=== PATIENT | male | born 1975 | race Caucasian/White ===

== ENCOUNTER 2020-08-06 03:48 | Inpatient (IN) | payer OTHER ==
[~2020-08-06] VITALS: Ht 177.8 cm; Wt 139.1 kg
[2020-08-06] MEDS ORDERED: ALBUTEROL/IPRATROPIUM 2.5MG/0.5MG, 3 ML ONE (04:01)
[2020-08-06] MEDS ORDERED: methylPREDNISolone SOD SUCC 125 MG/2 ML ONE (04:01)
[2020-08-06] MEDS ORDERED: ALBUTEROL 0.5%, 20ML ONE (04:10)
[2020-08-06] MEDS ORDERED: PLEASE ENTER ALLERGIES MC SCH (04:30)
[2020-08-06] MEDS ORDERED: SODIUM CHLORIDE 0.9% 1,000ML IVBOLUS ONE (04:30)
[2020-08-06] MEDS ORDERED: methylPREDNISolone SOD SUCC 125 MG/2 ML IVPB ONE (04:30)
[2020-08-06] MEDS ORDERED: ALBUTEROL 0.5%, 20ML NPPB SCH (04:30)
--- NOTE | 2020-08-06 04:32 | NUR ---
Patient presents to ER c/o SOB x2 days. Patient states he had COVID approx 1 month ago but recovered. Patient has a hx of asthma. He does not use neb tx at home but does use an inhaler. His meds were not helping. Patient speaking in one word sentences. 77% RA on arrival. No O2 at home. Patient is having obvious diff breathing. Respirations even and labored.
--- NOTE | 2020-08-06 04:35 | NUR ---
Patient receiving continuous neb tx. Patient now able to speak in full word sentences. Patient appears fatigued. Denies ever having to be intubated. Lab at bedside.
--- NOTE | 2020-08-06 04:40 | NUR ---
Patient states he uses an inhaler and takes an unknown anti-anxiety med.
[2020-08-06 04:58] LABS: BASOPHILS % (AUTO) 1 % (0-1); EOSINOPHILS % (AUTO) 7 % (1-7); LYMPHOCYTES % (AUTO) 20 % (22-44); MEAN CORPUSCULAR HEMOGLOBIN 30.7 pg (27.5-34.5); MEAN CORPUSCULAR HGB CONC 34.4 g/dL (33.2-36.2); MEAN PLATELET VOLUME 7.4 fL (7.4-10.4); MONOCYTES % (AUTO) 12 % (2-9); NEUTROPHILS % (AUTO) 60 % (42-75); PLATELET COUNT 175 x10^3/uL (130-400); RED BLOOD COUNT 5.02 x10^6/uL (4.38-5.82); RED CELL DISTRIBUTION WIDTH 15.4 % (9.4-14.8)
[2020-08-06 05:00] LABS: MD NO
[2020-08-06 05:06] LABS: ALANINE AMINOTRANSFERASE 53 U/L (12-78); ALBUMIN 3.6 g/dL (3.4-5.0); ANION GAP 6 mmol/L (5-15); CALCIUM 8.8 mg/dL (8.5-10.1); CHLORIDE 109 mmol/L (98-107)
[2020-08-06 05:11] LABS: ALKALINE PHOSPHATASE 58 U/L (45-117); BILIRUBIN,TOTAL 0.6 mg/dL (0.2-1.0); CREATININE 1.03 mg/dL (0.7-1.3); TOTAL PROTEIN 6.8 g/dL (6.4-8.2); TROPONIN I < 0.015 ng/mL (0.000-0.045)
--- NOTE | 2020-08-06 06:11 | NUR ---
Patient resting comfortably in [facility] on a [place]. Respirations even and unlabored. TBADM
[2020-08-06] MEDS ORDERED: SODIUM CHLORIDE FLUSH 10ML SYR IVF PRN (06:30)
--- NOTE | 2020-08-06 06:58 | NUR ---
Report given to SALBADOR Cardenas. Patient care transferred.
--- NOTE | 2020-08-06 06:58 | NUR ---
Recieved report from [facility]
[2020-08-06] MEDS ORDERED: ACETAMINOPHEN 325 MG TABLET PO PRN (07:00)
--- NOTE | 2020-08-06 07:29 | NUR ---
Report given to [facility]
[2020-08-06 07:50] VITALS: BP 134/85
[2020-08-06] MEDS: DOXYCYCLINE 100 MG in DEXTROSE 5% 250 ML IV SCH ×2 (09:36→21:30)
[2020-08-06] MEDS: methylPREDNISolone SOD SUCC 125 MG/2 ML IVPush SCH ×3 (09:36→23:20)
[2020-08-06] MEDS: SODIUM CHLORIDE 0.9% 1,000 ML IV SCH ×2 (09:37→16:52)
[2020-08-06] MEDS: ENOXAPARIN 40 MG/0.4 ML SQ SCH (09:37)
[2020-08-06 10:09] LABS: D-DIMER 0.7 ug/mlFEU (0.00-0.52)
[2020-08-06 10:32] VITALS: BP 134/85
[2020-08-06] MEDS ORDERED: ESCI10TA10 PO (10:40)
[2020-08-06] MEDS: ALBUTEROL HFA 90 MCG/SPRAY INH SCH ×3 (11:00→19:54)
[2020-08-06] MEDS ORDERED: TAMS-11 PO (11:06)
[2020-08-06 14:22] VITALS: BP 149/89
[2020-08-06 20:33] VITALS: BP 135/84
[2020-08-06] MEDS ORDERED: OMNIPAQUE 350 MG/ML, 100ML BOTTLE ONE (21:42)
[2020-08-06 23:50] VITALS: BP 137/78
[2020-08-07 00:21] VITALS: BP 137/78
[2020-08-07 05:47] LABS: BASOPHILS % (AUTO) 0 % (0-1); EOSINOPHILS % (AUTO) 0 % (1-7); LYMPHOCYTES % (AUTO) 6 % (22-44); MEAN CORPUSCULAR HEMOGLOBIN 30.6 pg (27.5-34.5); MEAN PLATELET VOLUME 7.5 fL (7.4-10.4); MONOCYTES % (AUTO) 3 % (2-9); NEUTROPHILS % (AUTO) 91 % (42-75); PLATELET COUNT 202 x10^3/uL (130-400); RED BLOOD COUNT 5.23 x10^6/uL (4.38-5.82); RED CELL DISTRIBUTION WIDTH 15.3 % (9.4-14.8)
[2020-08-07 05:53] LABS: ALANINE AMINOTRANSFERASE 39 U/L (12-78); ALBUMIN 3.5 g/dL (3.4-5.0); ANION GAP 5 mmol/L (5-15); CALCIUM 8.4 mg/dL (8.5-10.1); CHLORIDE 107 mmol/L (98-107); CREATININE 0.88 mg/dL (0.7-1.3)
[2020-08-07 06:03] LABS: ALKALINE PHOSPHATASE 57 U/L (45-117); BILIRUBIN,TOTAL 0.6 mg/dL (0.2-1.0)
[2020-08-07 06:06] LABS: MD NO
[2020-08-07] MEDS: methylPREDNISolone SOD SUCC 125 MG/2 ML IVPush SCH ×3 (06:11→23:39)
[2020-08-07] MEDS: ENOXAPARIN 40 MG/0.4 ML SQ SCH (06:25)
[2020-08-07] MEDS: ALBUTEROL HFA 90 MCG/SPRAY INH SCH ×4 (07:19→19:55)
[2020-08-07 08:45] VITALS: BP 121/69
[2020-08-07] MEDS: DOXYCYCLINE 100 MG in DEXTROSE 5% 250 ML IV SCH ×2 (09:19→21:41)
[2020-08-07 13:35] VITALS: BP 118/75
[2020-08-07] MEDS ORDERED: ESCITALOPRAM 10MG TABLET PO PRN (16:00)
[2020-08-07 19:58] VITALS: BP 143/80
[2020-08-08 00:50] VITALS: BP 126/78
[2020-08-08] MEDS: ALBUTEROL HFA 90 MCG/SPRAY INH SCH (07:00)
[2020-08-08] MEDS: ENOXAPARIN 40 MG/0.4 ML SQ SCH (07:00)
[2020-08-08 07:41] VITALS: BP 114/74
[2020-08-08] MEDS: methylPREDNISolone SOD SUCC 125 MG/2 ML IVPush SCH (07:57)
[2020-08-08] MEDS ORDERED: METH4TAB2 PO (08:52)
[2020-08-08] MEDS ORDERED: ALBU18HF INH (08:52)
[2020-08-08] MEDS ORDERED: DOXY100T23 PO (08:52)
[2020-08-08] MEDS ORDERED: TAMSULOSIN 0.4 MG CAP.ER.24H PO SCH (09:00)
[2020-08-08] MEDS: DOXYCYCLINE 100 MG in DEXTROSE 5% 250 ML IV SCH (09:33)
[2020-08-08] MEDS ORDERED: ALBUTEROL HFA 90 MCG/SPRAY INH PRN (11:00)
== END 2020-08-08 11:50 | disposition home or self-care (01) | DRG 189 ==
LOC: ED 04:18 → EDIP 06:21 → INTOOBSV 06:21 → OBSVTOIN 06:21 → EDIP 07:50 → 4NW 08:24 → DCLOUNGE 08-08 11:45
PROVIDERS: ADMIT Family Medicine; ATTEND Family Medicine
DX: J96.01 Acute respiratory failure with hypoxia (principal); E87.2 Acidosis; J45.52 Severe persistent asthma with status asthmaticus; E16.2 Hypoglycemia, unspecified; F41.1 Generalized anxiety disorder; G47.30 Sleep apnea, unspecified; I10 Essential (primary) hypertension; Z20.822 Contact with and (suspected) exposure to COVID-19; R73.9 Hyperglycemia, unspecified; Z80.8 Family history of malignant neoplasm of other organs or systems; Z79.899 Other long term (current) drug therapy; Z79.891 Long term (current) use of opiate analgesic; Z79.01 Long term (current) use of anticoagulants
CPT/HCPCS: 36415; 71045; 71275; 80053; 83605; 83735; 83880; 84100; 84145; 84443; 84484; 85025; 85379; 85384; 87040; 87205; 87635; 93005; 94640; 94644; 96374; 96375; 96376; 99291; G0378; J7060; Q9967; J2930; J7030

== ENCOUNTER 2020-10-06 12:51 | Outpatient (CLI) | payer OTHER ==
[~2020-10-06 12:51] MED LIST: ALBU18HF INH; DOXY100T23 PO; ESCI10TA10 PO; METH4TAB2 PO; TAMS-11 PO
== END 2020-10-06 23:59 | disposition home or self-care (01) ==
LOC: CFH 12:51
PROVIDERS: ATTEND Registered Nurse
DX: J45.901 Unspecified asthma with (acute) exacerbation (principal); K76.0 Fatty (change of) liver, not elsewhere classified
CPT/HCPCS: 71250